=== PATIENT | female | born 1970 | race Caucasian/White ===

== ENCOUNTER 2017-05-12 12:31 | Emergency (ER) | payer OTHER ==
--- NOTE | ~2017-05-12 | US85 ---
[facility] A Service of [facility] RADIOLOGY TEXT RESULTS PATIENT: BUZZ VAIL LOCATION: [place] : 74 UNIT #: [id number] AGE: [address]: Sapna Prince MD SEX: F ORDER DR: [id number] [facility] [address] [place], [place] [address] [id number] MR#: [id number] Acc #: [id number] NAME: BUZZ VAIL : 1970 SEX: F STUDY DATE/TIME: 05/12/2017 13:37 UNIT: [place] ROOM: STUDY DESCRIPTION: LE Veins Unilat or Ltd Stdy Attending Physician: Sapna Prince M.D. Ordering Physician: Sanpa Prince M.D. MEDICAL IMAGING REPORT This report is preliminary unless electronic signature is present EXAM Venous Doppler ultrasound, left leg, 05/12/2017. HISTORY 47-year-old female in the ED complaining of 3-day history of left leg pain. TECHNIQUE Venous Doppler ultrasound examination of the left leg using medeiros-scale, spectral Doppler, and color flow Doppler ultrasound imaging. FINDINGS The examination is negative for DVT. There is no evidence of DVT from the groin to the ankle. The left greater saphenous vein is patent. However, occlusive thrombus is present within the lesser saphenous vein in the calf. IMPRESSION 1. Occlusive superficial venous thrombus within the lesser saphenous vein in the calf. 2. The remainder of the exam is negative. No evidence of left leg DVT. Greater saphenous vein is patent. Dictated by... Kadeem Whitley M.D. THIS IS AN ELECTRONICALLY VERIFIED REPORT Kadeem Whitley M.D. at 05/13/2017 12:51 PM TERRA/brian TD: 05/12/2017 23:14 JOB #: [id number] [facility] A Service of [facility] RADIOLOGY TEXT RESULTS PATIENT: BUZZ VAIL LOCATION: [place] : 74 UNIT #: [id number] AGE: [address]: Sapna Prince MD SEX: F ORDER DR: MEDICAL IMAGING REPORT Page 1 of 1 COPY
== END 2017-05-12 15:01 | disposition home or self-care (01) ==
LOC: CED 12:31
DX: I80.02 Phlebitis and thrombophlebitis of superficial vessels of left lower extremity (principal); I10 Essential (primary) hypertension
CPT/HCPCS: 93971; 99284